=== PATIENT | male | born 1960 | race Two or more races ===

== ENCOUNTER 2021-12-24 18:49 | Emergency (ER) | payer OTHER ==
[~2021-12-24] VITALS: Ht 172.7 cm; Wt 106.6 kg
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
[2021-12-24] MEDS ORDERED: CT SWABBABLE VALVE TRANS SET 1 EA INFUS.SET MC ONE (19:13)
[2021-12-24] MEDS ORDERED: IOHEXOL-300 100 ML VIAL IV ONE (19:13)
[2021-12-24] MEDS ORDERED: IV NS 0.9% 250 ML IV ONE (19:13)
--- NOTE | 2021-12-24 19:19 | NUR ---
IV ESTABLISHED L AC 18G. LABS DRAWN AND COLLECTED AT BEDSIDE.
[2021-12-24 19:47] LABS: ALBUMIN 3.7 g/dL (3.4-5.0); BILIRUBIN,TOTAL 0.8 mg/dL (0.2-1.0); CALCIUM, SERUM 9.3 mg/dL (8.5-10.1); CREATININE 1.3 mg/dL (0.6-1.3); POTASSIUM 4.3 mmol/L (3.5-5.1); TOTAL PROTEIN, SERUM 7.5 g/dL (6.4-8.2)
--- NOTE | 2021-12-24 20:26 | NUR ---
PT TAKEN FOR CT SCAN
[2021-12-24 20:27] LABS: BASOPHILS # (AUTO) 0.1 K/uL (0.0-0.2); BASOPHILS % (AUTO) 0.6 % (0.0-2.0); EOSINOPHILS % (AUTO) 0.9 % (0.0-6.0); HEMATOCRIT 50 % (39-51); HEMOGLOBIN 17.2 g/dL (13.5-17.5); LYMPHOCYTES # (AUTO) 3.1 K/uL (0.8-4.8); LYMPHOCYTES % (AUTO) 28.1 % (20.0-44.0); MEAN CORPUSCULAR HGB CONC 34 g/dl (31.0-36.0); MEAN CORPUSCULAR VOLUME 93 fL (80-96); MONOCYTES # (AUTO) 0.9 K/uL (0.1-1.30); MONOCYTES % (AUTO) 8.1 % (2.0-12.0); NEUTROPHILS # (AUTO) 6.8 K/uL (1.8-8.9); NEUTROPHILS % (AUTO) 62.3 % (43.0-81.0); PLATELET COUNT (AUTO) 260 K/uL (150-450); RED BLOOD CELL COUNT(AUTO) 5.38 MIL/uL (4.5-6.0); WHITE BLOOD COUNT (AUTO) 10.9 K/uL (4.3-11.0)
--- NOTE | 2021-12-24 20:31 | NUR ---
PT BACK FROM CT, RECONNECTED TO MONITOR
[2021-12-24] MEDS ORDERED: IBUP-1955 PO (21:38)
[2021-12-24] MEDS ORDERED: TRAM50TA2 PO (21:38)
[2021-12-24] MEDS ORDERED: HYDROCODONE/APAP 10/325MG TABLET ONE (21:47)
[2021-12-24] MEDS ORDERED: HYDROCODONE/APAP 10/325MG TABLET PO ONE (22:00)
[2021-12-24 22:02] VITALS: BP 121/82
== END 2021-12-24 22:05 | disposition home or self-care (01) ==
LOC: ER 19:00
DX: S20.212A Contusion of left front wall of thorax, initial encounter (principal); R91.1 Solitary pulmonary nodule; R10.12 Left upper quadrant pain; W01.0XXA Fall on same level from slipping, tripping and stumbling without subsequent striking against object, initial encounter; Y93.89 Activity, other specified; Y92.89 Other specified places as the place of occurrence of the external cause; Y99.8 Other external cause status
CPT/HCPCS: 36415; 71100; 71250; 74177; 80053; 85025; 99285; J7050; Q9967